=== PATIENT | female | born 1975 | race Caucasian/White ===

== ENCOUNTER 2021-10-28 13:00 | Day surgery (SDC) | payer OTHER, BC, SELFPAY ==
[2021-10-28] VITALS (7 sets, daily range): BP systolic 116–133; BP diastolic 69–102; PULSE 82–99; RESP 14–16; TEMP 36.2–37.3; O2SAT 94–99; BMI 40.2
--- NOTE | 2021-10-28 13:14 | EX.ED.DYSGE1 ---
HPI History of Present Illness Chief Complaint: Abscess Detail of Chief Complaint: Left breast abscess Informant: patient Onset/Context/Timing Onset: Days Context: Gradual Onset Current Severity: Moderate Maximum Severity: Moderate Narrative Narrative: Patient presents secondary to left breast abscess. Symptoms started 7 days ago. She has been on doxycycline for the past 4 days. She initially had some drainage from the area. She was seen by Dr. Torres today but the abscess is too large to drain in the office. Plan is to take her to the operating room for incision and drainage. Patient denies fever or chills. [facility] Medical History Hypertension Hypothyroid Prediabetes Home Medications Metformin HCl 500 mg PO BID 06/27/16 [History Last Taken 08/03/16] levothyroxine 100 mcg PO DAILY 06/27/16 [History Last Taken 08/03/16] prednisone 20 mg PO BIDCM #10 tablet 08/03/16 [Rx Last Taken Unknown] Allergy/AdvReac Type Severity Reaction Status Date / Time No Known Allergies Allergy Verified 10/28/21 13:00 Surgical History History of History of cholecystectomy History of partial thyroidectomy Social History Smoking Status: Never smoker ROS ROS ED Constitutional Constitutional ED: Denies chills or fever(s) Eyes Eyes: Denies change in vision ENT ENT ED: Denies sore throat Cardiovascular Cardiovascular: Denies chest pain Respiratory/Chest Respiratory/Chest: Denies cough or dyspnea Gastrointestinal Gastrointestinal: Denies abdominal pain, nausea or vomiting Genitourinary Genitourinary ED: Denies dysuria Musculoskeletal Musculoskeletal: Denies back pain Integumentary Reports abscess; Denies rash Neurologic Neurologic: Denies headache(s) or weakness Allergic/Immunologic Allergic/Immunologic ED: Denies urticaria EXAM Physical Exam Const Vital Signs: 10/28/21 13:01 Temperature 97.1 F L Temperature Source Temporal Pulse Rate 84 Respiratory Rate 14 Blood Pressure 131/92 H Blood Pressure Mean 105 Pulse Ox 97 Oxygen Delivery Method Room Air Positive well nourished and well developed General Appearance ED: well developed HEENT Reports moist mucous membranes Eyes PERRL and EOMs intact bilaterally Neck supple Chest Wall inspection of chest normal and palpation of chest normal Chest Narrative: Abscess to the medial aspect of the left breast. No spontaneous drainage. Resp normal respiratory effort and clear to auscultation bilaterally Cardio regular rate and regular rhythm GI non-tender Palpation: soft Extremity normal to inspection Neuro oriented x3 Sensorium / Orientation: alert Psych mental status grossly normal MDM MDM MDM Narrative Medical decision making narrative: IV line will be established. Patient be treated with morphine and Zofran for pain control. Lab work sent. Patient will go to the OR for incision and drainage. Discharge Plan Triage Chief Complaint: Abscess ED Provider: Emani Bernstein Dx/Rx/DC Orders Clinical Impression: Abscess of breast, left Prescriptions: No Action levothyroxine 100 MCG tablet 100 mcg PO DAILY RF: 0 Metformin HCl 500 mg PO BID RF: 0 prednisone 20 MG tablet 20 mg PO BIDCM Qty: 10 RF: 0 Primary Care Provider: Mayela Shaver Referrals: Mayela Shaver MD [Primary Care Provider] - Disposition Disposition: Acute Care Hospital [facility]
[2021-10-28] MEDS: Morphine 4 MG/ML Syringe IV (13:18)
[2021-10-28] MEDS: Ondansetron 4 MG/2 ML Vial IV (13:18)
--- NOTE | 2021-10-28 13:19 | NURSING ---
SURGERY LEE LEFT BREAST ABSCESS
[2021-10-28 13:32] LABS: Absolute Lymphocyte Count 2.36 X10^3/uL (0.83-4.51); Absolute Neutrophil Count 6.9 X10^3/uL (2.0-7.7); Basophil# 0.05 X10^3/uL; Basophil% 0.5 % (0-1); Eosinophils% 3.8 % (0-5); Hematocrit 38.7 % (37-47); Hemoglobin 13.1 g/dL (12.0-15.0); Lymphocyte # 2.36 X10^3/ul (0.83-4.51); Lymphocyte % 22.3 % (19-41); Mean Corp Hgb Conc 33.9 g/dL (32-36); Mean Corpuscular Hgb 27.6 pg (27.0-32.0); Mean Corpuscular Volume 81.6 fL (81-99); Mean Platelet Vol. 9.6 fl (6.2-12.0); Monocyte# 0.86 X10^3/uL; Monocyte% 8.1 % (0-10); NRBC Flagged by Analyzer 0 % (0-5); Neutrophil # 6.86 X10^3/uL (2.7-7.7); Neutrophil % 64.9 % (47-70); Platelet Count 318 K/mm3 (150-450); RBC Distribution Width CV 11.5 % (11.6-14.6); RBC Distribution Width SD 34.2 fl (35.1-43.9); Red Blood Count 4.74 M/mm3 (4.2-5.4); White Blood Count 10.6 K/mm3 (4.4-11.0)
[2021-10-28 13:36] LABS: Anion Gap 5 (5-15); BUN 10 mg/dL (7-18); BUN/Creat Ratio 14.1 RATIO (10-20); Calcium,Total 9.5 mg/dL (8.5-10.1); Chloride 102 mmol/L (98-107); Creatinine, Serum 0.71 mg/dL (0.55-1.02); EST Glomerular Filtration Rate 95 mL/min (>60); Est Glom Filt Rate - Afr Amer 114 mL/min (>60); Estimated Creatinine Clearance 86.41 ml/min; Glucose 159 mg/dL (74-106); Potassium 3.6 mmol/L (3.5-5.1); Sodium Level 135 mmol/L (136-145)
[2021-10-28 13:49] LABS: International Normalized Ratio 1.1; Prothrombin Time (Protime)PT. 13.8 SECONDS (11.7-14.9)
[2021-10-28 13:50] LABS: Partial Thromboplast Time 25.1 Seconds (24.1-36.2)
[2021-10-28] MEDS: Lactated Ringers 1,000 ML 75 ML IV (14:09)
[2021-10-28] MEDS: Cefazolin 2 GM in 0.9% Normal Saline 100 ML IV (14:43)
[2021-10-28] MEDS: Lidocaine 1% /Epi 1:100 (20ml) 20 ML Vial (14:51)
--- NOTE | 2021-10-28 15:12 | PCM.OPRPT ---
Report of Operation Date of Procedure: 10/28/21 Pre-Operative Diagnosis: left breast abscess Post-Operative Diagnosis: same Surgery/Procedure Performed:: incision and drainage of left breast abscess Description of Surgical Findings:: 8 x 7 cm abscess with depth of 3 cm of left breast Surgeon: Carmel Torres Type of Anesthesia: General Anesthesiologist: Enid Hobbs Specimen's removed: cultures of abscess fluid Estimated Blood Loss (mL): < 10 ml Fluids Replaced: 400 ml RL Description of Procedure: After informed consent was obtained, the patient was brought to the Operating Room. Appropriate time out protocol was followed. The patient was placed in the supine position. The patient was then placed under anesthesia. The left breast was then prepped with a sterile surgical skin preparation. Sterile surgical drapes were placed. This skin and subcutaneous tissues at the site of the abscess were then widely infiltrated with the local anesthetic. A skin incision was made in a cruciate fashion over the abscessed site and there was a large amount of purulent fluid that emanated from this site. Cultures of this fluid were taken and sent to pathology. Hemostasis was achieved with electrocautery. The cavity was vigorously irrigated with hydrogen peroxide. The abscess cavity was 8 x 7 cm with a depth of 3 cm. The abscess cavity was densely packed with betadyne diluted saline soaked gauze. Dry gauze dressings were placed over the wound. An ABD pad was placed over the wound. Surgical tape was used to hold the above in place. Sponge, instrument and suture count was verified and found to be correct. Patient tolerated procedure well and was brought to the Recovery Room in stable condition. Complications none noted Admit VTE Documentation VTE Present on Admission: Yes VTE Mechan Device Prophylaxis: SCD's
--- NOTE | 2021-10-28 15:23 | DCINST_ITS ---
Discharge Instructions Follow Up Care Test Results: Test results from this visit will be discussed in further detail at your follow-up appointment, if applicable. Discharge Plan Admission Attending Provider: Carmel Torres Primary Care Provider: Mayela Shaver Instructions Additional Instructions / Restrictions: Recommended pain control regimen - May take 600 mg ibuprofen (Motrin) and then in 3-4 hours, may take 650 mg acetaminophen (Tylenol), then in 3-4 hours may take 600 mg ibuprofen, then in 3- 4 hours may take 650 mg acetaminophen and so on for 2-3 days May take narcotic pain medication for pain that is not controlled by above and at night for comfort through the night Leave dressings in place May shower but cover left breast with a towel and keep your back to the shower head to avoid getting dressing wet Do not soak - no tub baths/swimming Ice applied to areas of discomfort may help Reinforce dressing if seepage/bleeding is noted. That is - apply more gauze to the site and reinforce with tape - apply pressure to the area for 30 minutes if bleeding is noted. Regular diet as tolerated, drink plenty of fluids. For breast surgeries - wear supportive bra during the day to prevent the weight of your breasts from pulling on the incisional/wound site. Please call my office for an appointment to see me on Wednesday, please call for a time. Office number is If any questions, please call my office at and ask the ladies underwear operator for the general surgery nurses desk Discharge Orders/Prescriptions Prescriptions: New hydrocodone-acetaminophen 5-325 mg tablet 1 tab PO Q8H 5 Days Qty: 15 RF: 0 No Action levothyroxine 100 MCG tablet 100 mcg PO DAILY RF: 0 Metformin HCl 500 mg PO BID RF: 0 lisinopril 5 mg tablet 5 mg PO DAILY RF: 0 Trulicity 1.5 mg/0.5 mL pen injector 1.5 mg SUBCUT QWEEK RF: 0 glipizide 5 mg tablet 5 mg PO DAILY RF: 0 Referrals / Follow Up: Mayela Shaver MD [Primary Care Provider] - Disposition Disposition (needs filled in before D/C Order can be placed): Home, Self Care
== END 2021-10-28 16:05 | disposition home or self-care (01) ==
LOC: ED 13:39 → SDC 13:42 → ACINP 13:43
PROVIDERS: Emergency Provider Emergency Medicine; PCP Internal Medicine; Visit Provider Surgery
PROC: (CPT 19020; principal; 2021-10-28 14:20)
DX: N61.1 Abscess of the breast and nipple (principal); Z68.41 Body mass index [BMI] 40.0-44.9, adult; E11.9 Type 2 diabetes mellitus without complications; I10 Essential (primary) hypertension; E89.0 Postprocedural hypothyroidism; E66.9 Obesity, unspecified; Z79.84 Long term (current) use of oral hypoglycemic drugs; Z79.890 Hormone replacement therapy; Z79.52 Long term (current) use of systemic steroids
CPT/HCPCS: 19020; 80048; 85025; 85610; 85730; 87015; 87070; 87075; 87077; 87102; 87116; 87205; 87206; 99285; J7050; J7120; A4216; J2405

== ENCOUNTER 2022-06-17 15:03 | Emergency (ER) | payer OTHER, BC, SELFPAY ==
[2022-06-17 15:04] VITALS: BP 129/84; PULSE 102; RESP 18; TEMP 35.4; O2SAT 100; BMI 39.3
--- NOTE | 2022-06-17 15:39 | ED.VIS.GI ---
HPI HPI - GI History of Present Illness Chief Complaint: Nausea/Vomiting Informant: patient Abdominal Pain/Flank Pain Onset: Today and Hours (1) Context: Sudden Onset Timing: Continuous Quality: Cramping Location: RLQ and LLQ Worsened by: Nothing Relieved by: Nothing Nausea/Vomiting/Emesis GI Symptom: Positive for Nausea and Vomiting Onset: Today Quality: Negative for Blood streaks, Coffee ground or Hematemesis Diarrhea/Melena/Hematochezia GI Symptom: Positive for Diarrhea; Negative for Melena or Hematochezia Stool Quality: Positive for Watery Associated Symptoms Associated Symptoms: Negative for Dysuria, Frequency, Hematuria or Urgency Narrative Narrative: Patient presents with nausea, vomiting, diarrhea, abdominal pain that began approximate 1 hour prior to arrival. Patient states she was at work when all this started. Patient states it began rather suddenly. Patient describes her pain as cramping. Patient states it is mainly over the lower abdomen. Patient states nothing makes it better nothing makes it worse. Patient states she has been vomiting up dark brown liquid but denies any hematemesis or coffee-ground emesis. Patient admits to some diarrhea but denies any melena or hematochezia. Patient denies any urinary complaints. Patient denies any abnormal vaginal bleeding or discharge. [facility] Medical History Hypertension Hypothyroid Prediabetes Home Medications Metformin HCl 500 mg PO BID 06/27/16 [History Last Taken 10/28/21] levothyroxine 100 mcg tablet 100 mcg PO DAILY 06/27/16 [History Last Taken 10/28/21] dulaglutide 1.5 mg/0.5 mL subcutaneous pen injector (Trulicity) 1.5 mg subcut QWEEK 10/28/21 [History Last Taken 10/28/21] glipizide 5 mg tablet 5 mg PO DAILY 10/28/21 [History Last Taken Unknown] hydrocodone-acetaminophen 5-325mg 5mg-325mg 1 tab PO Q8H 5 days #15 tabs 10/28/21 [Rx Last Taken Unknown] lisinopril 5 mg tablet 5 mg PO DAILY 10/28/21 [History Last Taken Unknown] ondansetron 4 mg disintegrating tablet 4 mg PO Q8H PRN PRN Nausea #10 tabs 01/25/23 [Rx Last Taken Unknown] Allergy/AdvReac Type Severity Reaction Status Date / Time No Known Allergies Allergy Verified 06/17/22 15:04 Surgical History History of History of cholecystectomy History of partial thyroidectomy Social History Smoking Status: Never smoker ROS ROS ED Constitutional Constitutional ED: Denies chills or fever(s) Eyes Eyes: Reports blurry vision ENT ENT ED: Denies rhinorrhea or sore throat Cardiovascular Cardiovascular: Reports racing heartbeat; Denies chest pain Respiratory/Chest Respiratory/Chest: Denies cough or dyspnea Gastrointestinal Gastrointestinal: Reports abdominal pain, diarrhea, nausea and vomiting Genitourinary Genitourinary ED: Denies dysuria or hematuria Musculoskeletal Musculoskeletal: Denies back pain or neck pain Integumentary Denies abscess or rash Neurologic Neurologic: Reports headache(s); Denies weakness Allergic/Immunologic Allergic/Immunologic ED: Denies mouth swelling or urticaria EXAM Physical Exam Const Vital Signs: 06/17/22 15:04 06/17/22 15:43 06/17/22 17:57 Temperature 95.8 F L Temperature Source Temporal Pulse Rate 102 H 57 L Respiratory Rate 18 Blood Pressure 129/84 H 114/91 H 109/92 H Blood Pressure Mean 99 98 97 Pulse Ox 100 96 Oxygen Delivery Method Room Air Room Air 06/17/22 19:32 Temperature Temperature Source Pulse Rate 95 Respiratory Rate 15 Blood Pressure 143/85 H Blood Pressure Mean 104 Pulse Ox 98 Oxygen Delivery Method Room Air Positive well nourished, well developed and obese General Appearance ED: well developed and NAD Nutritional Appearance: obese HEENT Reports moist mucous membranes Neck supple and no JVD Resp normal respiratory effort and clear to auscultation bilaterally Cardio regular rate and regular rhythm GI normal to inspection, nondistended, normoactive bowel sounds Palpation: soft and tender LLQ, RLQ, RUQ and suprapubic; Negative for guarding or rebound tenderness present Extremity normal to inspection General Extremety ED: Negative for edema or tenderness General Extremity: Negative for edema Neuro oriented x3, CN's II-XII intact bilaterally and no sensory deficits noted Sensorium / Orientation: alert Motor Exam: strength 5/5 throughout Psych mental status grossly normal Skin no rashes or lesions noted MDM MDM MDM Narrative Medical decision making narrative: Patient was given IV fluids, morphine, and Zofran. Differential diagnosis includes gastroenteritis, bowel obstruction, pyelonephritis, urinary tract infection, ureteral calculus, pancreatitis, and diverticulitis. Will obtain CBC to assess for leukocytosis and anemia. Will obtain comprehensive metabolic profile to assess for electrolyte abnormalities, renal function, and hepatic function. Will obtain urinalysis to assess for urinary tract infection, hematuria, and urinary ketosis. Will obtain CT scan of the abdomen pelvis to assess for bowel obstruction, mass, or infection. Lab Data Attestation: I reviewed the patient's lab results. Lab results narrative: CBC was reviewed and shows a leukocytosis of 16.3. Hemoglobin was 15.8. Platelets were normal. Comprehensive metabolic profile was reviewed. Total bilirubin was slightly elevated at 1.1. Glucose was 213. Electrolytes were within normal limits. Anion gap was normal. Lipase was reviewed and was normal. Serum hCG was reviewed and was negative. Urinalysis was reviewed. There is no evidence of urinary tract infection or hematuria. There are no urinary ketones. Labs: Laboratory Results - last 24 hr 06/17/22 06/17/22 06/17/22 16:05 16:05 16:05 WBC 16.3 H RBC 5.75 H Hgb 15.8 H Hct 46.7 MCV 81.2 MCH 27.5 MCHC 33.8 RDW Std Deviation 34.9 L RDW Coeff of Krystal 12.0 Plt Count 363 MPV 10.2 Immature Gran % (Auto) 0.500 Neut % (Auto) 69.5 Lymph % (Auto) 21.7 Rhea % (Auto) 5.7 Eos % (Auto) 2.0 Baso % (Auto) 0.6 Absolute Neuts (auto) 11.3 H Absolute Lymphs (auto) 3.53 Nucleated RBC % 0 Sodium 134 L Potassium 3.7 Chloride 99 Carbon Dioxide 25.0 Anion Gap 10 BUN 9 Creatinine 1.01 Estim Creat Clear Calc 60.10 Est GFR (MDRD) Af Amer 76 Est GFR (MDRD) Non-Af 63 BUN/Creatinine Ratio 8.9 L Glucose 213 H Calcium 10.4 H Total Bilirubin 1.10 H AST 21 ALT 33 Alkaline Phosphatase 79 Total Protein 8.7 H Albumin 4.1 Globulin 4.6 H Albumin/Globulin Ratio 0.9 Lipase 255 Serum , Qual NEGATIVE Urine Color Urine Clarity Urine pH Ur Specific [place] Urine Protein Urine Glucose (UA) Urine Ketones Urine Occult Blood Urine Nitrite Urine Bilirubin Urine Urobilinogen Ur Leukocyte Esterase Urine RBC Urine WBC Ur Squamous Epith Cells Urine Bacteria Urine Mucus 06/17/22 18:07 WBC RBC Hgb Hct MCV MCH MCHC RDW Std Deviation RDW Coeff of Krystal Plt Count MPV Immature Gran % (Auto) Neut % (Auto) Lymph % (Auto) Rhea % (Auto) Eos % (Auto) Baso % (Auto) Absolute Neuts (auto) Absolute Lymphs (auto) Nucleated RBC % Sodium Potassium Chloride Carbon Dioxide Anion Gap BUN Creatinine Estim Creat Clear Calc Est GFR (MDRD) Af Amer Est GFR (MDRD) Non-Af BUN/Creatinine Ratio Glucose Calcium Total Bilirubin AST ALT Alkaline Phosphatase Total Protein Albumin Globulin Albumin/Globulin Ratio Lipase Serum , Qual Urine Color Yellow Urine Clarity Clear Urine pH 5.0 Ur Specific [place] 1.015 Urine Protein 15 H Urine Glucose (UA) NEGATIVE Urine Ketones Negative Urine Occult Blood Negative Urine Nitrite Negative Urine Bilirubin Negative Urine Urobilinogen Normal Ur Leukocyte Esterase Negative Urine RBC 0 SEEN Urine WBC 0-5 SEEN Ur Squamous Epith Cells 0-5 SEEN Urine Bacteria RARE Urine Mucus 0 SEEN Radiography Diagnostic Testing: Clinical Impression(s) from Imaging Studies Abdomen/Pelvis CT 06/17/22 15:48 IMPRESSION: No acute findings in the abdomen or pelvis. Electronically Signed: Mariah Gonzalez MD at 18:57 EST Reading Location ID and State: [id number] / Tel , Service support , CT scan of the abdomen and pelvis was obtained. On my independent review, there is no obstruction or perforation. There is no ileus. Radiologist also interpreted the CT scan and did not find any acute findings. Treatment and Re-Evaluation Narrative: Patient is feeling better on reevaluation. Patient was advised of her findings. Patient was given a prescription for Zofran. Patient was instructed to start with a liquid diet and advance to a bland diet and then to a regular diet as she feels better. Patient was instructed to follow-up with her primary care physician in 5 to 7 days. Patient was instructed return if worse in any way. Patient and spouse understood and were agreeable with the plan. All questions were answered. Discharge Plan Triage Chief Complaint: Nausea/Vomiting Other Complaint: Dizziness Hypotension ED Provider: Clifton Felipe Dx/Rx/DC Orders Clinical Impression: Nausea, vomiting, and diarrhea, Leukocytosis Instructions: ED Gastroenteritis, Viral (Adult) Prescriptions: New ondansetron [ondansetron] 4 mg tablet,disintegrating 4 mg PO Q8H PRN PRN (Reason: Nausea) Qty: 10 0RF No Action levothyroxine 100 MCG tablet 100 mcg PO DAILY Metformin HCl 500 mg PO BID lisinopril 5 mg tablet 5 mg PO DAILY Trulicity 1.5 mg/0.5 mL pen injector 1.5 mg SUBCUT QWEEK glipizide 5 mg tablet 5 mg PO DAILY hydrocodone-acetaminophen 5-325 mg tablet 1 tab PO Q8H 5 Days Qty: 15 0RF Primary Care Provider: Mayela Shaver Referrals: Mayela Shaver MD [Primary Care Provider] - 5-7 Days Disposition Disposition: Home, Self Care
[2022-06-17 15:43] VITALS: BP 114/91; PULSE 57; O2SAT 96
--- NOTE | 2022-06-17 15:48 | CT_ITS ---
EXAM: CT ABDOMEN AND PELVIS WITH INTRAVENOUS CONTRAST CLINICAL INDICATION: Abdominal pain -- IV PO Contrast TECHNIQUE: Helically acquired images were obtained of the abdomen and pelvis with intravenous contrast. This CT exam was performed using one or more of the following dose reduction techniques: automated exposure control, adjustment of the mA and/or kV according to patient size, and/or use of iterative reconstruction technique. This report was created using [employer] report generation technology. CONTRAST: Oral and amp; IV Gastrografin and amp; 100mL [id number] COMPARISON: None. FINDINGS: LOWER THORAX: Unremarkable. Lung bases are clear. No cardiomegaly. No significant pericardial effusion. ABDOMEN: LIVER: Unremarkable. Homogeneous. No focal mass. GALLBLADDER AND BILE DUCTS: Gallbladder is surgically absent. No intra- or extrahepatic biliary ductal dilation. PANCREAS: Unremarkable. No focal cystic or solid mass. SPLEEN: Unremarkable. Normal size without focal cystic or solid mass. ADRENALS: Unremarkable. No nodules. KIDNEYS AND URETERS: Unremarkable. Normal renal size and position. No hydronephrosis. STOMACH AND BOWEL: Unremarkable. No stomach or bowel distention. No focal inflammatory change. PELVIS: APPENDIX: Normal visualized appendix. BLADDER: Unremarkable. REPRODUCTIVE: Unremarkable as visualized. No mass. ABDOMEN and PELVIS: INTRAPERITONEAL SPACE: Unremarkable. No ascites or other fluid collection. No free air. BONES/JOINTS: Unremarkable. No suspicious lytic or blastic abnormality. SOFT TISSUES: Unremarkable. No discrete abdominal or pelvic wall hernia. VASCULATURE: Unremarkable. Abdominal aorta is normal in caliber. LYMPH NODES: Unremarkable. No enlarged lymph nodes. CT/Abdomen/Pelvis WITH Contrast IMPRESSION: No acute findings in the abdomen or pelvis. Electronically Signed: Mariah Gonzalez MD at 18:57 EST Reading Location ID and State: [id number] / Tel , Service support ,
[2022-06-17 16:13] LABS: Absolute Lymphocyte Count 3.53 X10^3/uL (0.83-4.51); Absolute Neutrophil Count 11.3 X10^3/uL (2.0-7.7); Basophil% 0.6 % (0-1); Eosinophil# 0.32 X10^3/uL; Hematocrit 46.7 % (37-47); Hemoglobin 15.8 g/dL (12.0-15.0); Lymphocyte # 3.53 X10^3/ul (0.83-4.51); Lymphocyte % 21.7 % (19-41); Mean Corp Hgb Conc 33.8 g/dL (32-36); Mean Corpuscular Hgb 27.5 pg (27.0-32.0); Mean Corpuscular Volume 81.2 fL (81-99); Mean Platelet Vol. 10.2 fl (6.2-12.0); Monocyte# 0.93 X10^3/uL; Monocyte% 5.7 % (0-10); NRBC Flagged by Analyzer 0 % (0-5); Neutrophil # 11.34 X10^3/uL (2.7-7.7); Neutrophil % 69.5 % (47-70); Platelet Count 363 K/mm3 (150-450); RBC Distribution Width SD 34.9 fl (35.1-43.9); Red Blood Count 5.75 M/mm3 (4.2-5.4); White Blood Count 16.3 K/mm3 (4.4-11.0)
[2022-06-17] MEDS: Ondansetron 4 MG/2 ML Vial IV (16:13)
[2022-06-17] MEDS: Morphine 4 MG/ML Syringe IV ×2 (16:13→18:50)
[2022-06-17] MEDS: 0.9% Normal Saline 1,000 ML 1000 ML IV (16:13)
[2022-06-17 16:37] LABS: ALB/GLOB Ratio 0.9 RATIO (0.9-2.4); AST(SGOT) 21 U/L (15-37); Alanine Aminotransfer ALT/SGPT 33 U/L (13-56); Albumin, Serum 4.1 g/dL (3.2-5.0); Alkaline Phosphatase 79 U/L (45-117); Anion Gap 10 (5-15); BUN 9 mg/dL (7-18); BUN/Creat Ratio 8.9 RATIO (10-20); Calcium,Total 10.4 mg/dL (8.5-10.1); Chloride 99 mmol/L (98-107); Creatinine, Serum 1.01 mg/dL (0.55-1.02); EST Glomerular Filtration Rate 63 mL/min (>60); Est Glom Filt Rate - Afr Amer 76 mL/min (>60); Globulin 4.6 g/dL (2.2-4.2); Glucose 213 mg/dL (74-106); Internal QC Validated? YES +Cl - CLEAR BKGD; Lipase 255 U/L (73-393); Potassium 3.7 mmol/L (3.5-5.1); Pregnancy, Serum, hCG Quali. NEGATIVE Negative; Protein, Total 8.7 g/dL (6.4-8.2); Sodium Level 134 mmol/L (136-145)
[2022-06-17 17:57] VITALS: BP 109/92
[2022-06-17 18:11] LABS: Mucous, Urine 0 SEEN /hpf (<or=2+); Red Blood Cells-Urine 0 SEEN /hpf (0-5)
[2022-06-17 18:39] LABS: Bacteria RARE /hpf (None Seen); Squamous Epithelial Cells - UA 0-5 SEEN /hpf (5-10); White Blood Cells 0-5 SEEN /hpf (0-5)
[2022-06-17 18:40] LABS: Color, Urine Yellow (Yellow); Glucose, Dipstick NEGATIVE (Normal); Ketone-Dipstick Negative (Negative); Protein-Dipstick 15 mg/dl (Negative); Specific Gravity, Urine 1.015 (1.002-1.030); Urine Bilirubin Dipstick Negative (Negative); Urine Clarity Clear (Clear)
[2022-06-17 18:41] LABS: Leukocyte Esterase-Dipstick Negative /ul (Negative); Nitrite-Dipstick Negative (Negative); Occult Blood-Urine Negative /ul (Negative); Urine Urobilinogen Normal (Normal)
[2022-06-17 19:32] VITALS: BP 143/85; PULSE 95; RESP 15; O2SAT 98
== END 2022-06-17 20:15 | disposition home or self-care (01) ==
PROVIDERS: Emergency Provider Emergency Medicine; PCP Internal Medicine; Visit Provider Emergency Medicine
DX: R11.2 Nausea with vomiting, unspecified (principal); R19.7 Diarrhea, unspecified; I95.9 Hypotension, unspecified; R10.9 Unspecified abdominal pain; D72.829 Elevated white blood cell count, unspecified; I10 Essential (primary) hypertension; E03.9 Hypothyroidism, unspecified; R73.03 Prediabetes; E66.9 Obesity, unspecified; Z79.84 Long term (current) use of oral hypoglycemic drugs; Z79.890 Hormone replacement therapy; Z79.899 Other long term (current) drug therapy
CPT/HCPCS: 74177; 80053; 81001; 83690; 84703; 85025; 96361; 96374; 96375; 96376; 99283; J7030; A4216; J2405

== ENCOUNTER 2023-08-15 18:54 | Emergency (ER) | payer OTHER, BC, SELFPAY ==
[2023-08-15 18:55] VITALS: BP 173/94; PULSE 131; RESP 18; TEMP 37.9; O2SAT 98; BMI 38.7
--- NOTE | 2023-08-15 19:27 | EDS_ITS ---
HPI <DINESH Garces - Last Filed: 08/15/23 20:56> History of Present Illness Chief Complaint: Abscess Narrative Narrative: Patient is a 47-year-old female with history of hypothyroidism, diabetes who presents to the emergency department for fever, abscess to the sternal area. Patient states for the last 3 days she noticed it was getting more red and painful. She went to urgent care today, they put a less than centimeter incision that had mild amount of drainage. Patient is now on doxycycline. Patient states she then became febrile today, she still feels that there is moderate amount of drainage in the abscess. It is here for evaluation. PFS <DINESH Garces - Last Filed: 08/15/23 20:56> [facility] Medical History Hypertension Hypothyroid Prediabetes Home Medications Metformin HCl 500 mg PO BID 06/27/16 [History Last Taken 10/28/21] levothyroxine 100 mcg tablet 100 mcg PO DAILY 06/27/16 [History Last Taken 10/28/21] dulaglutide 1.5 mg/0.5 mL subcutaneous pen injector (Trulicity) 1.5 mg subcut QWEEK 10/28/21 [History Last Taken 10/28/21] glipizide 5 mg tablet 5 mg PO DAILY 10/28/21 [History Last Taken Unknown] hydrocodone-acetaminophen 5-325mg 5mg-325mg 1 tab PO Q8H 5 days #15 tabs 10/28/21 [Rx Last Taken Unknown] lisinopril 5 mg tablet 5 mg PO DAILY 10/28/21 [History Last Taken Unknown] ondansetron 4 mg disintegrating tablet 4 mg PO Q8H PRN PRN Nausea #10 tabs 06/17/22 [Rx Last Taken Unknown] cephalexin 500 mg capsule 500 mg PO Q6 #40 CAPSULES 08/15/23 [Rx Last Taken Unknown] ondansetron 4 mg disintegrating tablet 4 mg PO Q8H PRN PRN Nausea #10 tabs 08/15/23 [Rx Last Taken Unknown] oxycodone-acetaminophen 5 mg-325 mg tablet (Percocet) 1 tab PO Q8H PRN pain 3 days #10 tabs 08/15/23 [Rx Last Taken Unknown] sulfamethoxazole 800 mg-trimethoprim 160 mg tablet (Bactrim DS) 1 tab PO BID #20 tabs 08/15/23 [Rx Last Taken Unknown] Allergy/AdvReac Type Severity Reaction Status Date / Time No Known Allergies Allergy Verified 08/15/23 18:58 Surgical History History of History of cholecystectomy History of partial thyroidectomy Social History Smoking Status: Never smoker ROS <DINESH Garces - Last Filed: 08/15/23 20:56> ROS ED ROS Narrative Constitutional: Negative for weight loss, weakness. Positive for fever and chills Eyes: Negative for vision loss, vision change, double vision ENT: Negative for any sore throat, ear pain, congestion Cardiovascular: Negative for any chest pain, tightness, palpitations Respiratory: Negative for any cough, sputum production, hemoptysis, dyspnea, dyspnea on exertion, orthopnea Gastrointestinal: Negative for any abdominal pain, nausea, vomiting, diarrhea, constipation, blood in stool, blood in vomit : Negative for any urinary frequency, dysuria, retention, blood in urine Muscle skeletal: Negative for any neck pain, back pain Neurological: Negative for any headache, syncope, dizziness Skin: Negative for any rashes, itching, abrasions, lacerations. Positive for abscess formation to the sternal area Psychiatric: Negative for any depression, anxiety, stress, suicidal ideation, homicidal ideation Hematologic: Negative for any excessive bruising, easy bleeding EXAM <DINESH Garces - Last Filed: 08/15/23 20:56> Physical Exam Narrative Exam Narrative: Vital signs reviewed. HEET: Head normocephalic atraumatic, TMs clear bilaterally. Posterior pharynx is clear, moist mucous membranes. Nares clear bilaterally. Neck: Supple with no lymphadenopathy or tenderness. No signs of meningismus. Cardiac: Regular rate and rhythm no murmurs gallops or rubs, equal peripheral pulses bilaterally. Respiratory: Lungs clear to auscultation bilaterally. No chest tenderness. Abdomen: Soft, nontender, nondistended. No abdominal bruit or pulsatile masses. No hepatosplenomegaly Extremities: No peripheral edema, no signs of gross trauma or deformity. Active full range of motion of all extremities. Neuro: Cranial nerves II through XII intact, no focal neurological deficits. Skin: Clean dry and intact with no rash, purpura, petechiae, vesicles or pustules. Patient does have an abscess to the sternal area measuring approximately 2 cm x 3 cm with fluctuance. There is a small incision where mild amount of drainage. Patient does have some surrounding cellulitis. Backs/flank: No CVA tenderness, no midline spinal tenderness, no deformity. Psych: Normal mood and affect. No SI, HI or acute psychosis. Const Vital Signs: 08/15/23 18:55 08/15/23 19:58 Temperature 100.2 F H 100 F H Temperature Source Temporal Oral Pulse Rate 131 H 115 H Respiratory Rate 18 18 Blood Pressure 173/94 H 154/105 H Blood Pressure Mean 120 121 Pulse Ox 98 100 Oxygen Delivery Method Room Air Room Air <Dr. Ezio Solomon DO - Last Filed: 08/15/23 20:59> Physical Exam Const Vital Signs: 08/15/23 18:55 08/15/23 19:58 Temperature 100.2 F H 100 F H Temperature Source Temporal Oral Pulse Rate 131 H 115 H Respiratory Rate 18 18 Blood Pressure 173/94 H 154/105 H Blood Pressure Mean 120 121 Pulse Ox 98 100 Oxygen Delivery Method Room Air Room Air [facility] <DINESH Garces - Last Filed: 08/15/23 20:56> [facility] Lab Data Labs: Laboratory Results - last 24 hr 08/15/23 19:45 WBC 8.8 RBC 4.87 Hgb 13.6 Hct 38.8 MCV 79.7 L MCH 27.9 MCHC 35.1 RDW Std Deviation 34.8 L RDW Coeff of Krystal 12.0 Plt Count 277 MPV 9.8 Immature Gran % (Auto) 0.200 Neut % (Auto) 77.9 H Lymph % (Auto) 10.1 L Sumter % (Auto) 8.3 Eos % (Auto) 2.8 Baso % (Auto) 0.7 Absolute Neuts (auto) 6.9 Absolute Lymphs (auto) 0.89 Nucleated RBC % 0 Sodium 133 L Potassium 3.5 Chloride 101 Carbon Dioxide 24.0 Anion Gap 8 BUN 6 L Creatinine 0.92 Estim Creat Clear Calc 88.10 Est GFR (MDRD) Af Amer 84 Est GFR (MDRD) Non-Af 69 BUN/Creatinine Ratio 6.5 L Glucose 344 H Calcium 9.0 Treatment and Re-Evaluation :: Patient is in no obvious respiratory distress. Patient's vital signs show low- grade fever, tachycardia. Presenting to the emerged department with complaints of abscess to external area. Differential diagnosis includes MRSA, necrotizing fasciitis, cellulitis, simple abscess, MSSA Patient received some basic laboratory values, patient given IV fluids, Zofran, Toradol. I will provide the patient with pain medicine, I do believe that the abscess does need to be I&D need. I spoke with the patient, she is agreeable. Area was cleansed with ChloraPrep, 0 place a 1.5 cm vertical incision that connected to the small incision today, copious amounts of foul-smelling yellow to brown fluid was expelled. I was able to break up loculations with forceps, was able to irrigate the area. Patient tolerated well. Patient be given IV morphine. On reevaluation, the patient felt much better. Patient's vital signs are improved. At this time, do the patient stable for discharge. Patient CBC was unremarkable, patient's chemistries showed a slight elevation in her blood sugar at 344 however I did give the patient IV fluids. Patient will be placed on Keflex, Bactrim and will be given Zofran and Percocet. Patient will stop the doxycycline. 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 At this time, I do believe the patient needs to follow-up outpatient. She was given strict return precaution. She will return for any worsening redness fever chills nausea or vomiting. Patient stable for discharge. <Dr. Ezio Solomon, DO - Last Filed: 08/15/23 20:59> [facility] Narrative Medical decision making narrative: Patient is in no obvious respiratory distress. Patient's vital signs show low- grade fever, tachycardia. Presenting to the emerged department with complaints of abscess to external area. Differential diagnosis includes MRSA, necrotizing fasciitis, cellulitis, simple abscess, MSSA Patient received some basic laboratory values, patient given IV fluids, Zofran, Toradol. I will provide the patient with pain medicine, I do believe that the abscess does need to be I&D need. I spoke with the patient, she is agreeable. Area was cleansed with ChloraPrep, 0 place a 1.5 cm vertical incision that connected to the small incision today, copious amounts of foul-smelling yellow to brown fluid was expelled. I was able to break up loculations with forceps, was able to irrigate the area. Patient tolerated well. Patient be given IV morphine. On reevaluation, the patient felt much better. Patient's vital signs are improved. At this time, do the patient stable for discharge. Patient CBC was unremarkable, patient's chemistries showed a slight elevation in her blood sugar at 344 however I did give the patient IV fluids. Patient will be placed on Keflex, Bactrim and will be given Zofran and Percocet. Patient will stop the doxycycline. 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 At this time, I do believe the patient needs to follow-up outpatient. She was given strict return precaution. She will return for any worsening redness fever chills nausea or vomiting. Patient stable for discharge. This patient was seen with a PA/ICE CREAM VAULT WORKER Individually assessed they patient including history and physical. I have reviewed everything on the chart that is available and agree with the documentation provided by the PA/ICE CREAM VAULT WORKER including discussion about the assessment, treatment plan, discussion, and return precautions. Patient presenting with abscess to the chest. This was apparently I&D but needs to be opened more. Patient with fever and tachycardia so she was given IV fluids, Toradol, Zofran as well as morphine for pain. We did obtain a CBC and BMP and these were with exception of an elevated glucose of 344 without anion gap. Patient feeling better on reexamination. She also had incision and dr brasher see procedure note. Tolerated this well. We will switch her to Bactrim and Keflex for home. Wound culture was sent as the patient has not had this before. Lab Data Labs: Laboratory Results - last 24 hr 08/15/23 19:45 WBC 8.8 RBC 4.87 Hgb 13.6 Hct 38.8 MCV 79.7 L MCH 27.9 MCHC 35.1 RDW Std Deviation 34.8 L RDW Coeff of Krystal 12.0 Plt Count 277 MPV 9.8 Immature Gran % (Auto) 0.200 Neut % (Auto) 77.9 H Lymph % (Auto) 10.1 L [place] % (Auto) 8.3 Eos % (Auto) 2.8 Baso % (Auto) 0.7 Absolute Neuts (auto) 6.9 Absolute Lymphs (auto) 0.89 Nucleated RBC % 0 Sodium 133 L Potassium 3.5 Chloride 101 Carbon Dioxide 24.0 Anion Gap 8 BUN 6 L Creatinine 0.92 Estim Creat Clear Calc 88.10 Est GFR (MDRD) Af Amer 84 Est GFR (MDRD) Non-Af 69 BUN/Creatinine Ratio 6.5 L Glucose 344 H Calcium 9.0 Discharge Plan Triage Chief Complaint: Abscess ED Midlevel Provider: Idris Kendall ED Provider: Ezio Solomon Dx/Rx/DC Orders Clinical Impression: Abscess, Cellulitis Instructions: Abscess Drainage, Cellulitis Dc, ED Abscess Incision And Drainage Prescriptions: New cephalexin 500 mg capsule 500 mg PO Q6 Qty: 40 0RF sulfamethoxazole-trimethoprim [Bactrim DS] 800-160 mg tablet 1 tab PO BID Qty: 20 0RF oxycodone-acetaminophen [Percocet] 5-325 mg tablet 1 tab PO Q8H PRN (Reason: pain) 3 Days Qty: 10 0RF ondansetron 4 mg tablet,disintegrating 4 mg PO Q8H PRN PRN (Reason: Nausea) Qty: 10 0RF No Action levothyroxine 100 MCG tablet 100 mcg PO DAILY Metformin HCl 500 mg PO BID lisinopril 5 mg tablet 5 mg PO DAILY Trulicity 1.5 mg/0.5 mL pen injector 1.5 mg SUBCUT QWEEK glipizide 5 mg tablet 5 mg PO DAILY hydrocodone-acetaminophen 5-325 mg tablet 1 tab PO Q8H 5 Days Qty: 15 0RF ondansetron [ondansetron] 4 mg tablet,disintegrating 4 mg PO Q8H PRN PRN (Reason: Nausea) Qty: 10 0RF Primary Care Provider: Mayela Shaver Referrals: Mayela Shaver MD [Primary Care Provider] - Activity Restrictions/Additional Instructions: Continue to use warm compresses. If you continue get a fever, if the area accumulates in with more drainage you need to return. Follow-up outpatient. Take antibiotics until finished. The nausea and pain medicine are as needed. Stop the doxycycline and start the new medication tomorrow Disposition Disposition: Home, Self Care
[2023-08-15] MEDS: 0.9% Normal Saline (1000mL) 1,000 ML 1000 ML IV (19:48)
[2023-08-15] MEDS: Lidocaine 1% /Epi 1:100 (20ml) 20 ML Vial 3 ML INFILT (19:49)
[2023-08-15] MEDS: Acetaminophen 500 MG Tablet 1000 MG PO (19:49)
[2023-08-15] MEDS: Ondansetron 4 MG/2 ML Vial IV (19:49)
[2023-08-15] MEDS: Ketorolac 15 MG/ML Vial IV (19:49)
[2023-08-15 19:58] VITALS: BP 154/105; PULSE 115; RESP 18; TEMP 37.7; O2SAT 100
[2023-08-15 20:02] LABS: Absolute Lymphocyte Count 0.89 X10^3/uL (0.83-4.51); Absolute Neutrophil Count 6.9 X10^3/uL (2.0-7.7); Basophil# 0.06 X10^3/uL; Basophil% 0.7 % (0-1); Eosinophil# 0.25 X10^3/uL; Eosinophils% 2.8 % (0-5); Hematocrit 38.8 % (37-47); Hemoglobin 13.6 g/dL (12.0-15.0); Lymphocyte # 0.89 X10^3/ul (0.83-4.51); Lymphocyte % 10.1 % (19-41); Mean Corp Hgb Conc 35.1 g/dL (32-36); Mean Corpuscular Hgb 27.9 pg (27.0-32.0); Mean Corpuscular Volume 79.7 fL (81-99); Mean Platelet Vol. 9.8 fl (6.2-12.0); Monocyte# 0.73 X10^3/uL; Monocyte% 8.3 % (0-10); NRBC Flagged by Analyzer 0 % (0-5); Neutrophil # 6.89 X10^3/uL (2.7-7.7); Neutrophil % 77.9 % (47-70); Platelet Count 277 K/mm3 (150-450); RBC Distribution Width SD 34.8 fl (35.1-43.9); Red Blood Count 4.87 M/mm3 (4.2-5.4); White Blood Count 8.8 K/mm3 (4.4-11.0)
[2023-08-15 20:19] LABS: Anion Gap 8 (5-15); BUN 6 mg/dL (7-18); BUN/Creat Ratio 6.5 RATIO (10-20); Chloride 101 mmol/L (98-107); Creatinine, Serum 0.92 mg/dL (0.55-1.02); EST Glomerular Filtration Rate 69 mL/min (>60); Est Glom Filt Rate - Afr Amer 84 mL/min (>60); Glucose 344 mg/dL (74-106); Potassium 3.5 mmol/L (3.5-5.1); Sodium Level 133 mmol/L (136-145)
[2023-08-15] MEDS: Morphine 4 MG/ML Syringe IV (20:31)
[2023-08-15 21:02] VITALS: BP 142/89; PULSE 87; RESP 18; TEMP 36.6; O2SAT 98
== END 2023-08-15 21:08 | disposition home or self-care (01) ==
PROVIDERS: Nurse Practitioner; Emergency Provider Student in an Organized Health Care Education/Training Program; PCP Internal Medicine; Visit Provider Student in an Organized Health Care Education/Training Program
DX: L02.213 Cutaneous abscess of chest wall (principal); E11.9 Type 2 diabetes mellitus without complications; L03.319 Cellulitis of trunk, unspecified; E03.9 Hypothyroidism, unspecified; Z11.52 Encounter for screening for COVID-19; Z79.84 Long term (current) use of oral hypoglycemic drugs; Z79.899 Other long term (current) drug therapy
CPT/HCPCS: 10060; 80048; 85025; 87070; 87205; 87631; 96361; 96374; 96375; 99283; J7030; A4216; J2405

== ENCOUNTER 2024-05-09 14:17 | Emergency (ER) | payer OTHER, BC, SELFPAY ==
[2024-05-09 14:18] VITALS: BP 133/73; PULSE 97; RESP 18; TEMP 36.4; O2SAT 100; BMI 36.4
--- NOTE | 2024-05-09 14:42 | EKG12_ITS ---
Test Reason : SYNCOPE/CHEST PRESSURE Blood Pressure : */* mmHG Vent. Rate : 104 BPM Atrial Rate : 104 BPM P-R Int : 130 ms QRS Dur : 76 ms QT Int : 344 ms P-R-T Axes : 25 -24 35 degrees QTcB Int : 452 ms Sinus tachycardia Inferior infarct , age undetermined Abnormal ECG Confirmed by BENTON CUNNINGHAM, FIDENCIO ([id number]), editor dictionary JAMES VASQUEZ ([id number]) on 05/11/2024 10:48:29 AM Referred By: RADHA/JAYLEEN Confirmed By: FIDENCIO BHARDWAJ MD
[2024-05-09 14:50] VITALS: BP 106/62; BP 114/72; BP 118/90; PULSE 106; PULSE 96
--- NOTE | 2024-05-09 14:53 | EX.ED.DYSGE1 ---
HPI History of Present Illness Chief Complaint: Syncope Detail of Chief Complaint: Near syncopal episode Informant: patient and spouse/S.O. Onset/Context/Timing Onset: Today, Days and Weeks Context: Sudden Onset Timing: Intermittent Quality: Lightheaded, nausea, diaphoresis vomiting and diarrhea today Location: Occurred at work Current Severity: Gone Maximum Severity: Moderate Worsened by: Patient had to strain to have a bowel movement Relieved by: Not applicable Associated Symptoms Associated Symptoms: Vasovagal episode/symptoms Narrative Narrative: Patient is a 48-year-old woman. She had a near syncopal sewed on the . This occurred while sitting. 2 prior episodes occurred while she was sitting as well. Today she was at work. She went to use the restroom. She states she had to strain. After using the restroom she apparently had a near syncopal sewed and became pale, diaphoretic and had an episode of vomiting x 1 and 1 loose stool. Patient denies history of cardiac disease. She does have history of hypertension and type 2 diabetes as well as hypothyroidism. She denies hematemesis, melena or hematochezia. Patient presently has no symptoms. Patient had blood work obtained at the [facility] prior to this event. They were ordered by her primary care physician Dr. Shaver because of episode that occurred on April 30. Prior similar symptoms: Yes Recent Illness/Hospitalization: No [facility] Medical History Prediabetes Hypothyroid Hypertension Home Medications ?Medication ?Instructions ?Recorded ?Last Taken ?Type Metformin HCl 500 mg PO BID 06/27/16 10/28/21 History levothyroxine 100 mcg tablet 100 mcg PO DAILY 06/27/16 10/28/21 History dulaglutide 1.5 mg/0.5 mL 1.5 mg subcut QWEEK 10/28/21 10/28/21 History subcutaneous pen injector (Trulicity) glipizide 5 mg tablet 5 mg PO DAILY 10/28/21 Unknown History hydrocodone-acetaminophen 5-325mg 1 tab PO Q8H 5 days #15 tabs 10/28/21 Unknown Rx 5mg-325mg lisinopril 5 mg tablet 5 mg PO DAILY 10/28/21 Unknown History ondansetron 4 mg disintegrating 4 mg PO Q8H PRN PRN Nausea #10 tabs 06/17/22 Unknown Rx tablet cephalexin 500 mg capsule 500 mg PO Q6 #40 CAPSULES 08/15/23 Unknown Rx ondansetron 4 mg disintegrating 4 mg PO Q8H PRN PRN Nausea #10 tabs 08/15/23 Unknown Rx tablet oxycodone-acetaminophen 5 mg-325 1 tab PO Q8H PRN pain 3 days #10 08/15/23 Unknown Rx mg tablet (Percocet) tabs sulfamethoxazole 800 1 tab PO BID #20 tabs 08/15/23 Unknown Rx mg-trimethoprim 160 mg tablet (Bactrim DS) Allergy/AdvReac Type Severity Reaction Status Date / Time No Known Allergies Allergy Verified 05/09/24 14:18 Surgical History History of partial thyroidectomy History of cholecystectomy History of Social History Smoking Status: Never smoker ROS ROS ED Constitutional Constitutional ED: Denies chills, fever(s) or subjective Eyes Eyes: Reports change in vision bilateral (During episode); Denies blurry vision ENT ENT ED: Denies rhinorrhea or sore throat Cardiovascular Cardiovascular: Denies chest pain or palpitations Respiratory/Chest Respiratory/Chest: Denies cough, dyspnea or dyspnea on exertion Gastrointestinal Gastrointestinal: Reports abdominal pain, diarrhea, nausea, vomiting and other Details: Per documentation HPI narrative ; Denies constipation or melena Musculoskeletal Musculoskeletal: Denies arthralgias or myalgias Integumentary Denies rash Neurologic Neurologic: Denies headache(s), paresthesias or weakness Hematologic/Lymphatic Hematologic/Lymphatic: Reports systems reviewed and no addt'l complaints, except as documented EXAM Physical Exam Narrative Exam Narrative: BMI is 36.5. Orthostatic vital signs are negative. Const Vital Signs: 05/09/24 14:18 05/09/24 14:50 05/09/24 14:50 Temperature 97.6 F L Temperature Source Oral Pulse Rate 97 Pulse Rate [Lying] 96 Pulse Rate [Sitting (for 1 minute prior to obtaining)] 96 Pulse Rate [Standing (for 1 minute prior to obtaining)] 106 H Respiratory Rate 18 Respiratory Effort Normal Non-Labored Respiratory Pattern Normal Blood Pressure 133/73 H Blood Pressure [Lying] 106/62 Blood Pressure [Sitting (for 1 minute prior to obtaining)] 114/72 Blood Pressure [Standing (for 1 minute prior to obtaining)] 118/90 H Blood Pressure Mean 93 Blood Pressure Mean [Lying] 76 Blood Pressure Mean [Sitting (for 1 minute prior to obtaining)] 86 Blood Pressure Mean [Standing (for 1 minute prior to obtaining)] 99 Pulse Ox 100 Oxygen Delivery Method Room Air Positive well nourished and well developed General Appearance ED: well developed, NAD and pallor; Negative for cyanotic or diaphoretic HEENT Reports moist mucous membranes HEENT Narrative: Head is atraumatic normocephalic. Ears normal. Nares patent. Posterior pharynx is normal Eyes PERRL and EOMs intact bilaterally General Eye ED: Negative for pale conjunctiva Neck no lymphadenopathy, supple and no JVD Resp normal respiratory effort and clear to auscultation bilaterally Cardio regular rate, regular rhythm, S1 normal heart sound, S2 normal heart sound and no murmurs GI normal to inspection, nondistended, normoactive bowel sounds, non-tender, non-distended and no masses; Negative for hepatosplenomegaly Extremity normal to inspection General Extremety ED: Negative for edema or tenderness General Extremity: Negative for edema Neuro oriented x3, CN's II-XII intact bilaterally and no sensory deficits noted Sensorium / Orientation: alert Motor Exam: strength 5/5 throughout Psych mental status grossly normal Skin no rashes or lesions noted, no wounds and skin turgor normal General Skin Exam: elasticity normal and pallor MDM MDM MDM Narrative Medical decision making narrative: Today's event is consistent with a vasovagal near syncopal sewed. Blood work that was obtained at the clinic clinic have not resulted. Since patient is orthostatic negative and history is consistent with a vagal episode no further testing is needed. EKG was obtained per nurse protocol. EKG reveals a sinus tach. Rhythm Strip Rhythm Strip: Sinus Rhythm Rate: 94 Ectopy: None EKG Initial EKG: Attestation: I personally reviewed and interpreted this EKG as follows: Interpretation: Sinus Tachycardia (Rate is 104. SD interval is 130 ms. Cures duration 76 ms. QT duration 344 ms. [place] is normal. Computer is reading inferior infarct. There is no evidence of an inferior infarct.) Treatment and Re-Evaluation :: Patient and were told this is to occur she will need a table tilt test. Her insurance does not permit her to have this done through [facility]. She will have to have this done through [facility]. Discharge Plan Triage Chief Complaint: Syncope ED Provider: Nelson Baca Dx/Rx/DC Orders Clinical Impression: Vasovagal near syncope, Type 2 diabetes mellitus, Hypertension, Adult BMI 36.0-36.9 kg/sq m, Sinus tachycardia by electrocardiogram Instructions: ED Near-Fainting- Vagal Reaction Prescriptions: No Action levothyroxine 100 MCG tablet 100 mcg PO DAILY Metformin HCl 500 mg PO BID lisinopril 5 mg tablet 5 mg PO DAILY Trulicity 1.5 mg/0.5 mL pen injector 1.5 mg SUBCUT QWEEK glipizide 5 mg tablet 5 mg PO DAILY hydrocodone-acetaminophen 5-325 mg tablet 1 tab PO Q8H 5 Days Qty: 15 0RF ondansetron [ondansetron] 4 mg tablet,disintegrating 4 mg PO Q8H PRN PRN (Reason: Nausea) Qty: 10 0RF cephalexin 500 mg capsule 500 mg PO Q6 Qty: 40 0RF sulfamethoxazole-trimethoprim [Bactrim DS] 800-160 mg tablet 1 tab PO BID Qty: 20 0RF oxycodone-acetaminophen [Percocet] 5-325 mg tablet 1 tab PO Q8H PRN (Reason: pain) 3 Days Qty: 10 0RF ondansetron 4 mg tablet,disintegrating 4 mg PO Q8H PRN PRN (Reason: Nausea) Qty: 10 0RF Primary Care Provider: Mayela Shaver Referrals: Mayela Shaver MD [Primary Care Provider] - 1-2 Weeks Activity Restrictions/Additional Instructions: If you have additional episodes where you pass out you will need to follow-up with Dr. Shaver's and possible referral to cardiology for table tilt test. Print Language: Kyrgyz Disposition Disposition: Home, Self Care
[2024-05-09 15:05] VITALS: BP 106/78; PULSE 97; RESP 18; TEMP 36.4; O2SAT 100
== END 2024-05-09 15:08 | disposition home or self-care (01) ==
PROVIDERS: Emergency Provider Emergency Medicine; PCP Internal Medicine; Visit Provider Emergency Medicine
DX: R55 Syncope and collapse (principal); E11.9 Type 2 diabetes mellitus without complications; R11.10 Vomiting, unspecified; R19.7 Diarrhea, unspecified; R00.0 Tachycardia, unspecified; I10 Essential (primary) hypertension; E03.9 Hypothyroidism, unspecified
CPT/HCPCS: 93005; 99284